=== PATIENT | male | born 2000 | race Caucasian/White ===

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

== ENCOUNTER 2020-03-14 13:32 | Emergency (ER) | payer OTHER ==
[~2020-03-14] VITALS: Ht 175.3 cm; Wt 83.9 kg
[2020-03-14] MEDS ORDERED: TOPI100 PO (20:48)
== END 2020-03-14 17:39 | disposition home or self-care (01) ==
LOC: ER 13:32
DX: S03.2XXA Dislocation of tooth, initial encounter (principal); S00.83XA Contusion of other part of head, initial encounter; S60.311A Abrasion of right thumb, initial encounter; Z23 Encounter for immunization; Z79.899 Other long term (current) drug therapy; V19.9XXA Pedal cyclist (driver) (passenger) injured in unspecified traffic accident, initial encounter
CPT/HCPCS: 90471; 90714; 99284-25

== ENCOUNTER 2020-03-14 19:32 | Emergency (ER) | payer OTHER ==
[~2020-03-14] VITALS: Ht 175.3 cm; Wt 83.9 kg
[2020-03-14] MEDS ORDERED: TOPI100 PO (20:48)
== END 2020-03-14 21:53 | disposition home or self-care (01) ==
LOC: ER 19:32
DX: S01.81XA Laceration without foreign body of other part of head, initial encounter (principal); G40.909 Epilepsy, unspecified, not intractable, without status epilepticus; Z79.899 Other long term (current) drug therapy; V18.4XXA Pedal cycle driver injured in noncollision transport accident in traffic accident, initial encounter; Y93.55 Activity, bike riding; Y92.410 Unspecified street and highway as the place of occurrence of the external cause
CPT/HCPCS: 12011; 99282-25

== ENCOUNTER 2022-04-17 21:49 | Emergency (ER) | payer OTHER ==
[~2022-04-17] VITALS: Ht 182.9 cm; Wt 97.5 kg
[~2022-04-17 21:49] MED LIST changes: +TOPI100 PO
== END 2022-04-17 22:10 | disposition home or self-care (01) ==
LOC: ER 21:49
DX: G40.909 Epilepsy, unspecified, not intractable, without status epilepticus (principal); V89.2XXA Person injured in unspecified motor-vehicle accident, traffic, initial encounter; Z79.899 Other long term (current) drug therapy
CPT/HCPCS: 99284

== ENCOUNTER 2023-01-23 18:35 | Emergency (ER) | payer OTHER ==
[~2023-01-23] VITALS: Ht 180.3 cm; Wt 95.2 kg
[2023-01-23] MEDS ORDERED: DIVALPROEX SOD500 M2 PO (21:36)
[2023-01-23] MEDS ORDERED: LEVE500 PO (21:36)
[2023-01-23 22:00] VITALS: BP 109/59
[2023-01-23] MEDS ORDERED: DIVA500EC PO (22:03)
== END 2023-01-23 22:23 | disposition home or self-care (01) ==
LOC: ER 18:35
DX: G40.909 Epilepsy, unspecified, not intractable, without status epilepticus (principal); S01.512A Laceration without foreign body of oral cavity, initial encounter; Z23 Encounter for immunization; Z79.899 Other long term (current) drug therapy; W19.XXXA Unspecified fall, initial encounter; Y92.89 Other specified places as the place of occurrence of the external cause; Y99.0 Civilian activity done for income or pay
CPT/HCPCS: 90471; 90715; 96361; 96365; 99284-25; A9270; J1953; J7030

== ENCOUNTER 2024-06-08 20:52 | Emergency (ER) | payer OTHER ==
[~2024-06-08] VITALS: Ht 177.8 cm; Wt 106.6 kg
[~2024-06-08 20:52] MED LIST changes: +DIVA500EC PO; +DIVALPROEX SOD500 M2 PO; +LEVE500 PO
[2024-06-08] MEDS ORDERED: Ketorolac Tromethamine 30mg Vial IV ONE (21:10)
[2024-06-08 21:24] LABS: BASOPHILS ABSOLUTE AUTO 0.02 K/mm3 (0.00-0.23); BASOPHILS PERCENT AUTO 0 % (0-2); EOSINOPHILS ABSOLUTE AUTO 0.02 K/mm3 (0.00-0.68); EOSINOPHILS PERCENT AUTO 0 % (0-6); Hematocrit 43.6 % (37.0-53.0); Hemoglobin 15.6 g/dL (13.5-17.5); IMMATURE GRAN ABSOLUTE AUTO 0.07 K/mm3 (0.00-0.10); IMMATURE GRAN PERCENT AUTO 1 % (0-1); LYMPHOCYTES ABSOLUTE AUTO 0.54 K/mm3 (0.84-5.20); LYMPHOCYTES PERCENT AUTO 6 % (21-46); MONOCYTES ABSOLUTE AUTO 0.62 K/mm3 (0.16-1.47); MONOCYTES PERCENT AUTO 7 % (4-13); Mean Corpuscular HGB 32.8 pg (26.0-34.0); Mean Corpuscular HGB Conc 35.8 g/dL (31.5-36.5); Mean Corpuscular Volume 92 fL (80-100); Mean Platelet Volume 10.4 fL (9.1-12.4); NEUTROPHILS ABSOLUTE AUTO 7.42 K/mm3 (1.96-9.15); NEUTROPHILS PERCENT AUTO 86 % (41-73); Platelet Count 195 K/mm3 (150-400); RDW Coefficient Variation 12.1 % (11.7-14.2); RDW Standard Deviation 40.2 fL (35.1-46.3); Red Blood Cell Count 4.76 M/mm3 (4.30-5.90); White Blood Cell Count 8.69 K/mm3 (4.00-11.30)
[2024-06-08 21:47] LABS: Albumin, Blood 3.8 g/dL (3.4-5.0); Albumin/Globulin Ratio 1.1 (0.8-1.8); Bilirubin, Total 0.8 mg/dL (0.1-1.0); Bun/Creatinine Ratio 19.4 (12.0-20.0); Calcium, Blood 9.4 mg/dL (8.5-10.1); Creatinine, Blood 0.67 mg/dL (0.60-1.20); Globulin, Blood 3.6 g/dL (2.2-4.0); Potassium, Blood 3.8 mmol/L (3.5-5.5); Total Protein, Blood 7.4 g/dL (6.4-8.2)
[2024-06-09] MEDS ORDERED: Ketorolac Tromethamine 15mg Vial IV ONE (01:10)
[2024-06-09 02:29] LABS: CORONAVIRUS COVID-19 AG Negative (NEGATIVE); INFLUENZA A AG Positive (NEGATIVE); INFLUENZA B AG Negative (NEGATIVE)
[2024-06-09] MEDS ORDERED: Acetaminophen 500 MG Tab PO ONE (02:40)
[2024-06-09] MEDS ORDERED: NS 1,000 ML IV SCH (02:40)
[2024-06-09 03:02] VITALS: BP 110/57
== END 2024-06-09 03:57 | disposition home or self-care (01) ==
LOC: ER 20:52
PROVIDERS: Emergency Medicine; Student in an Organized Health Care Education/Training Program
DX: R07.9 Chest pain, unspecified (principal); Z79.899 Other long term (current) drug therapy; J10.1 Influenza due to other identified influenza virus with other respiratory manifestations
CPT/HCPCS: 71046; 80053; 83690; 84484; 85025; 85379; 87428-QW; 93005; 93010; 96374; 99284-25; A9270; J1885; J7030